=== PATIENT | male | born 1965 | race Caucasian/White ===

== ENCOUNTER 2018-03-18 21:37 | Emergency (ER) | payer SELFPAY ==
--- NOTE | 2018-03-18 21:51 | EDM.PDOC ---
<Pablo Velazco - Last Filed: 03/18/18 22:04> ED HPI GENERAL MEDICAL PROBLEM - General Chief Complaint: Respiratory Problem Stated Complaint: SIDE PAIN, CHEST PAIN Time Seen by Provider: 03/18/18 21:51 Source of Information: Reports: Patient History Limitations: Reports: No Limitations - History of Present Illness INITIAL COMMENTS - FREE TEXT/NARRATIVE: HISTORY AND PHYSICAL: History of present illness: Patient is a 53-year-old male presents to the ED with combined of right side pain. He states it started about 3 days ago and has progressively gotten worse. Pain is on the right lateral chest. 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 He does not he has a chronic cough and sneezing since he moved to [place] 2 years ago but nothing new or worsening. Left-sided chest pain, jaw pain, or arm pain. He denies shortness of breath but does note that it hurts the right side to take a deep breath. Pain is constant and sharp and certain movements make the pain worse. He denies any fevers, chills, abdominal pain, nausea, vomiting, diarrhea, dysuria, hematuria, bowel symptoms. Past medical history is significant for anxiety and hypertension. He does note he has not taken any of his anti-hypertensives today as he could not find them. Patient smokes 4ppd x 40 days. Review of systems: As per history of present illness and below otherwise all systems reviewed and negative. Past medical history: As per history of present illness and as reviewed below otherwise noncontributory. Surgical history: As per history of present illness and as reviewed below otherwise noncontributory. Social history: No reported history of drug or alcohol abuse. Family history: As per history of present illness and as reviewed below otherwise noncontributory. Physical exam: General: Patient sitting comfortably in no acute distress and nontoxic appearing HEENT: Atraumatic, normocephalic, pupils reactive, negative for conjunctival pallor or scleral icterus, mucous membranes moist, throat clear, neck supple, nontender, trachea midline. No meningeal signs. Lungs: Clear to auscultation, breath sounds equal bilaterally, pain to palpation of right lateral chest wall. Heart: S1S2, regular, negative for clicks, rubs, or overt murmur. Abdomen: Soft, nondistended, nontender. Negative for masses or hepatosplenomegaly. Negative for costovertebral tenderness. Pelvis: Stable nontender. Genitourinary: Deferred. Rectal: Deferred. Extremities: Atraumatic, negative for cords or calf pain. Neurovascular unremarkable. Neuro: Awake, alert, oriented. Cranial nerves II through XII unremarkable. Cerebellum unremarkable. Motor and sensory unremarkable throughout. Exam nonfocal. Notes: Diagnostics: Right ribs with chest, CBC, CMP, UA Therapeutics: 60mg Toradol IM Prescriptions: Impression: [] Plan: Dr. Ruiz assumed care of patient at 2200 Definitive disposition and diagnosis as appropriate pending reevaluation and review of above. Right Lower Chest Pain Score (Numeric/FACES): 15 - Related Data Allergies Allergy/AdvReac Type Severity Reaction Status Date / Time No Known Allergies Allergy Verified 03/18/18 21:46 Home Meds: Home Meds Lisinopril 1 tab PO DAILY 03/18/18 [History] busPIRone [Buspar] 1 tab PO BID 03/18/18 [History] Past Medical History Cardiovascular History: Reports: Hypertension Psychiatric History: Reports: Anxiety - Past Surgical History Musculoskeletal Surgical History: Reports: Other (See Below) Other Musculoskeletal Surgeries/Procedures:: neck and back surgery Social & Family History - Family History Family Medical History: Noncontributory - Tobacco Use Smoking Status *Q: Current Every Day Smoker Years of Tobacco use: 40 Packs/Tins Daily: 4 - Caffeine Use Caffeine Use: Reports: None - Recreational Drug Use Recreational Drug Use: No ED ROS GENERAL - Review of Systems Review Of Systems: ROS reveals no pertinent complaints other than HPI. ED EXAM, GENERAL - Physical Exam Exam: See Below (see dictation) Course - Vital Signs Last Recorded V/S: Last Vital Signs Temp 36.2 C 03/18/18 21:42 Pulse 93 03/18/18 21:42 Resp 22 H 03/18/18 21:42 BP 179/109 H 03/18/18 21:51 Pulse Ox 95 03/18/18 21:42 - Orders/Labs/Meds Orders: Active Orders 24 hr Category Date Time Status Communication Order [RC] STAT Care 03/18/18 22:51 Ordered Ribs 2V w Chest Rt [CR] Stat Exams 03/18/18 21:58 Taken Labs: Laboratory Tests 03/18/18 03/18/18 Range/Units 22:08 22:08 WBC 13.33 H (4.0-11.0) K/uL RBC 5.04 (4.50-5.90) M/uL Hgb 17.1 H (13.0-17.0) g/dL Hct 48.7 (38.0-50.0) % MCV 96.6 (80.0-98.0) fL MCH 33.9 H (27.0-32.0) pg MCHC 35.1 (31.0-37.0) g/dL RDW Std Deviation 45.8 (28.0-62.0) fl RDW Coeff of [place] 13 (11.0-15.0) % Plt Count 206 (150-400) K/uL MPV 10.00 (7.40-12.00) fL Neut % (Auto) 68.2 (48.0-80.0) % Lymph % (Auto) 21.5 (16.0-40.0) % [place] % (Auto) 8.4 (0.0-15.0) % Eos % (Auto) 1.5 (0.0-7.0) % Baso % (Auto) 0.4 (0.0-1.5) % Neut # (Auto) 9.1 H (1.4-5.7) K/uL Lymph # (Auto) 2.9 H (0.6-2.4) K/uL [place] # (Auto) 1.1 H (0.0-0.8) K/uL Eos # (Auto) 0.2 (0.0-0.7) K/uL Baso # (Auto) 0.1 (0.0-0.1) K/uL Nucleated RBC % 0.0 /100WBC Nucleated RBCs # 0 K/uL Sodium 141 (136-148) mmol/L Potassium 4.1 (3.5-5.1) mmol/L Chloride 105 (98-107) mmol/L Carbon Dioxide 26.8 (21.0-32.0) mmol/L BUN 14 (7.0-18.0) mg/dL Creatinine 0.9 (0.8-1.3) mg/dL Est Cr Clr Drug Dosing 89.72 mL/min Estimated GFR (MDRD) > 60.0 ml/min Glucose 92 (74-106) mg/dL Calcium 9.3 (8.5-10.1) mg/dL Total Bilirubin 0.3 (0.2-1.0) mg/dL AST 19 (15-37) IU/L ALT 37 (14-63) IU/L Alkaline Phosphatase 105 (46-116) U/L Total Protein 7.3 (6.4-8.2) g/dL Albumin 3.8 (3.4-5.0) g/dL Globulin 3.5 (2.6-4.0) g/dL Albumin/Globulin Ratio 1.1 (0.9-1.6) Meds: Medications Discontinued Medications Generic Name Dose Route Start Last Admin Trade Name Freq PRN Reason Stop Dose Admin Ketorolac Tromethamine 60 mg 03/18/18 21:58 03/18/18 22:05 Toradol IM 03/18/18 21:59 60 mg ONETIME ONE Administration Departure - Departure Disposition: Home, Self-Care 01 Clinical Impression: Rib fracture Qualifiers: Encounter type: initial encounter Rib fracture type: single rib Fracture type: closed Laterality: right Qualified Code(s): S22.31XA - Fracture of one rib, right side, initial encounter for closed fracture - Discharge Information Referrals: PCP,None [Primary Care Provider] - Forms: ED Department Discharge Additional Instructions: The following information is given to patients seen in the emergency department who are being discharged to home. This information is to outline your options for follow-up care. We provide all patients seen in our emergency department with a follow-up referral. The need for follow-up, as well as the timing and circumstances, are variable depending upon the specifics of your emergency department visit. If you don't have a primary care physician on staff, we will provide you with a referral. We always advise you to contact your personal physician following an emergency department visit to inform them of the circumstance of the visit and for follow-up with them and/or the need for any referrals to a consulting specialist. The emergency department will also refer you to a specialist when appropriate. This referral assures that you have the opportunity for followup care with a specialist. All of these measure are taken in an effort to provide you with optimal care, which includes your followup. Under all circumstances we always encourage you to contact your private physician who remains a resource for coordinating your care. When calling for followup care, please make the office aware that this follow-up is from your recent emergency room visit. If for any reason you are refused follow-up, please contact the [facility] emergency department at and ask to speak to the emergency department charge nurse. [facility] Primary care- Internal Medicine and Family [address] [address] Use [id number] Tylenol or ibuprofen for pain and add tramadol/ball Mindi that you have been given as needed for stronger pain. Please only take the stronger pain medication when you're at home as he cannot drive a car or operate machinery when using this medication. Use the incentive spirometer you have been given every 1-2 hours to increase lung expansion and call and schedule a follow-up appointment with your provider or one of ours next week for further care and evaluation. Return to ER as needed and as discussed - My Orders Last 24 Hours: My Active Orders 03/18/18 22:51 Communication Order [RC] STAT - Assessment/Plan Last 24 Hours: My Active Orders 03/18/18 22:51 Communication Order [RC] STAT <Kimberli Ruiz - Last Filed: 03/18/18 22:54> ED HPI GENERAL MEDICAL PROBLEM - History of Present Illness INITIAL COMMENTS - FREE TEXT/NARRATIVE: This is Dr. Ruiz dictating an addendum note as I have assumed care of this case at 2200 hours. Labs have been reviewed and discussed with the patient as well as the x-ray. He does have a nondisplaced rib fracture of the right 10th rib and this has been relayed to him. He says he has had rib fractures before and we will give him an incentive spirometer and advise for pain management. I also advised To reduce his smoking. The patient did not produce a urine in the ED so I will cancel that test as it is no longer relevant in light of the x- ray. The patient is pacing the room as he says he needs to get a cigarette and would like to be discharged Aggression: Right 10th rib fracture ED ROS GENERAL - Review of Systems Review Of Systems: ROS reveals no pertinent complaints other than HPI. Departure - Departure Time of Disposition: 22:53 Condition: Good
[2018-03-18] MEDS ORDERED: Ketorolac 60 MG/2 ML SDV IM ONE (21:58)
[2018-03-18 22:35] LABS: CHLORIDE,CL 105 mmol/L (98-107); SODIUM,NA 141 mmol/L (136-148)
--- NOTE | 2018-03-19 19:02 | CR ---
EXAM DATE: 03/18/18 PATIENT'S AGE: 53 Patient: CANDI GRAHAM Facility: [place], [place] Site . Site : [id number] Study: XRay Extremity Ribs [id number]/[id number] 10:25:09 PM Ordering Physician: Sara Ag Final Report: INDICATION: Right rib pain. Coughing. TECHNIQUE: PA image of the chest and single view of the right ribs. COMPARISON: None. FINDINGS: Acute nondisplaced fracture of the posterolateral right 10th rib. Lungs and pleural spaces clear. Heart size and pulmonary vasculature within normal limits. IMPRESSION: Acute nondisplaced fracture of the posterolateral right 10th rib. Dictated by Peterson Magallanes MD @ Mar 18 2018 10:26PM (Electronic Signature) Report Signed by Proxy. [facility] CENTERAlethea
== END 2018-03-18 23:09 | disposition home or self-care (01) ==
LOC: MW.ED 21:37
DX: S22.31XA Fracture of one rib, right side, initial encounter for closed fracture (principal); I10 Essential (primary) hypertension; F41.9 Anxiety disorder, unspecified; F17.210 Nicotine dependence, cigarettes, uncomplicated; Z79.899 Other long term (current) drug therapy; X50.0XXA Overexertion from strenuous movement or load, initial encounter
CPT/HCPCS: 36415; 71101; 80053; 85025; 96372; 99283; J1885